=== PATIENT | female | born 1985 | race Hispanic/Latino ===

== ENCOUNTER → 2025-03-07 | Day surgery (SDC) | payer OTHER ==
[~2025-03-07] MED LIST: DEXAMETHASONE SOD PHOS INJ 4 MG/ML SDV ONE; FAMOTIDINE20 MG PO; GLYCOPYRROLATE INJ 0.2 MG/ML VIAL ONE; LIDOCAINE HCL 2% LOCAL INJ 5 ML SDV VIAL INJ ONE; METOCLOPRAMIDE HCL 10 MG/2ML VIAL ONE; ONDANSETRON HCL INJ 2MG/ML 2ML 2 MG/ML VIAL ONE; PANTOPRAZOLE SO40 MG PO; PROPOFOL IV EMULSION 10 MG/ML 20 ML VIAL ONE
[2025-03-07 10:32] VITALS: TEMP 97.6
[2025-03-07 10:45] VITALS: BP 132/70; PULSE 59; RESP 15; O2SAT 99
== END | disposition home or self-care (01) ==
LOC: OR 07:03
PROVIDERS: ATTEND Internal Medicine Gastroenterology
DX: K21.00 Gastro-esophageal reflux disease with esophagitis, without bleeding (principal); K29.50 Unspecified chronic gastritis without bleeding; K44.9 Diaphragmatic hernia without obstruction or gangrene; R13.10 Dysphagia, unspecified; R09.A2 Foreign body sensation, throat; D12.3 Benign neoplasm of transverse colon; K64.8 Other hemorrhoids; K62.5 Hemorrhage of anus and rectum; F41.9 Anxiety disorder, unspecified; E66.01 Morbid (severe) obesity due to excess calories; Z68.41 Body mass index [BMI] 40.0-44.9, adult; F41.8 Other specified anxiety disorders; Z98.84 Bariatric surgery status; Z79.899 Other long term (current) drug therapy
CPT/HCPCS: 43239; 45381; 45385; 81025; J1100; J2003; J2405; J2704; J2765; 45384